=== PATIENT | male | born 1945 | race Caucasian/White ===

== ENCOUNTER 2016-10-22 16:30 | Emergency (ER) | payer MEDICARE ==
--- NOTE | ~2016-10-22 | ER ---
PATIENT'S NAME: ROSHNI VASQUEZ [facility] AGE: 71 Y [address] ROOM: [place] [address] LOCATION: ED ADMIT DATE: 10/22/2016 ER/Outpatient Report DISCHARGE DATE: 10/22/2016 FAMILY PHYSICIAN: PHYSICIAN, NO ATTENDING PHYSICIAN: Blanca Henderson Time of arrival: 1630 hours. Time seen: 1638 hours. IDENTIFICATION: A 71-year-old male. CHIEF COMPLAINT: Neck pain. HISTORY OF PRESENT ILLNESS: The patient woke up with some neck stiffness 3 days ago. It has progressively gotten worse despite 2 visits of physical therapy. He had a dental appointment yesterday after having had the top molar extracted on the right side 10 days ago. He has had increasing pain since being at the dentist for followup yesterday. He went to Physical therapy after that, with no relief and then physical therapy again this morning and now the pain seems to be worse. He cannot move his head and now has pain kind of extending up to the posterior scalp. He denies headache per se. He has tried heat. No fever or chills. No vision changes. No numbness or tingling. ALLERGIES: NO KNOWN DRUG ALLERGIES. CURRENT MEDICATIONS: He takes a medicine for reflux and a multivitamin. MEDICAL PROBLEMS: Gastroesophageal reflux disease. PRIOR SURGERIES: The patient denied. SOCIAL HISTORY: Patient goes to the [place]. Tobacco use, denies. Alcohol use, denies. Drug use, denies. REVIEW OF SYSTEMS: All systems reviewed and negative other than what is noted in the HPI. PATIENT'S NAME: ROSHNI VASQUEZ [facility] AGE: 71 Y [address] ROOM: [place] [address] LOCATION: [facility] ADMIT DATE: 10/22/2016 ER/Outpatient Report DISCHARGE DATE: 10/22/2016 FAMILY PHYSICIAN: PHYSICIAN, YOSELIN ATTENDING PHYSICIAN: Blanca Henderson PHYSICAL EXAMINATION: VITAL SIGNS: Height 5 feet 8 inches, weight 165 pounds, blood pressure 173/98, pulse 86, respirations 16, temperature 98.9, sats 94% on room air. GENERAL: A 71-year-old male, in no acute distress. HEENT: Head: Normocephalic, atraumatic. Ears: TMs translucent in both ears. Eyes: Pupils equal and reactive to light and accommodation. Extraocular movements intact. Nose: Mucosa pink. No lesions. Mouth: No lesions. Pharynx benign. NECK: Decreased range of motion secondary to pain. Nontender to palpation. No nuchal rigidity. No lymphadenopathy. LUNGS: Clear to auscultation. Breath sounds are equal. HEART: Regular rate and rhythm. ABDOMEN: Soft, nondistended, nontender. SKIN: [place], warm, and dry. No lesions or rashes noted. NEUROLOGIC: The patient is alert and oriented x4. Cranial nerves 2 through 12 grossly intact. Motor strength 5/5 throughout. Sensation is intact to light touch. EMERGENCY ROOM COURSE: The patient was offered Valium. He did not wish to have Valium. He was given Flexeril 10 mg p.o. and Mcdonald 5/325 one p.o. with minimal improvement of his pain. 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 I did ask the patient about that as he had alluded to no surgeries. He said that was from an injury in the . Cervical spine CT, degenerative changes. No acute findings. Procalcitonin less than 0.05. Sodium 141, potassium 4.2, chloride 107, CO2 31, BUN 16, creatinine 1, blood sugar 89. Liver enzymes normal. CRP 1.82, lactate 0.8. Hemoglobin 16.4, hematocrit 46.9, platelets 254, white count 5.6 with a normal differential. Sedimentation rate 20. The patient was given Toradol 60 mg IM, and his pain and discomfort did improve. He said he could move his neck a little bit better and his pain relieved from an 8 to a 4. IMPRESSION: Torticollis. PLAN: Flexeril 10 mg t.i.d. p.r.n. spasm. Ibuprofen 600 mg t.i.d. with food. Ice or heat. [facility] Follow up sooner if any problems or concerns. Follow up immediately if any fever, chills, numbness, tingling, problems or concerns. The patient understands and agrees, and all questions have been answered. PATIENT'S NAME: ROSHNI VASQUEZ [facility] AGE: 71 Y [address] ROOM: [place] [address] LOCATION: [facility] ADMIT DATE: 10/22/2016 ER/Outpatient Report DISCHARGE DATE: 10/22/2016 FAMILY PHYSICIAN: YOSELIN ACOSTA ATTENDING PHYSICIAN: Blanca Henderson MD MURALI MARSHALL/modl /[id number] d: 10/23/16814 t: 10/24/16 1502, OUTPATIENT REPORT
[2016-10-22 17:16] LABS: BASOPHIL % 0.4 %; EOSINOPHIL # 0.1 K/uL (0.0-0.5); EOSINOPHIL % 1.4 %; HEMATOCRIT 46.9 % (37.0-53.0); HEMOGLOBIN 16.4 g/dL (11.0-16.0); IMMATURE GRANULOCYTE % 0.2 %; LYMPHOCYTE # 1.2 K/uL (0.8-4.0); LYMPHOCYTE % 21.3 %; MCV 94.4 fl (83.0-98.0); MONOCYTE # 0.5 K/uL (0.0-1.0); MONOCYTE % 9.1 %; MPV 9.5 fl (9.4-12.4); NEUTROPHIL # (ANC) 3.8 K/uL (1.4-9.0); NEUTROPHIL % 67.6 %; NRBC % 0 /100WBC (0-0.00); PLATELET COUNT 254 K/uL (150-450); RBC 4.97 M/uL (3.50-5.50); RDW-CV 11.9 % (11.9-14.6); WBC 5.6 K/uL (4.0-11.0)
[2016-10-22 17:32] LABS: ALBUMIN 4.4 gm/dL (3.5-5.0); ANION GAP 7.2 (10.0-19.0); CALCIUM 9.4 mg/dL (8.5-10.5); POTASSIUM 4.2 mMol/L (3.7-5.1); TOTAL BILIRUBIN 0.5 mg/dL (0.0-1.5); TOTAL PROTEIN 7.7 g/dL (6.0-8.4)
== END 2016-10-22 18:22 | disposition disaster alternative care site (69) ==
LOC: GMED 16:30
PROVIDERS: Family Medicine
DX: M43.6 Torticollis (principal); K21.9 Gastro-esophageal reflux disease without esophagitis
CPT/HCPCS: J1885